=== PATIENT | male | born 1980 ===

== ENCOUNTER 2024-08-08 07:18 | Emergency (ER) | payer OTHER ==
[~2024-08-08] VITALS: Ht 175.3 cm; Wt 95.0 kg
[2024-08-08 08:58] VITALS: BP 155/93
--- OUTSIDE RECORDS SUMMARY | 2024-08-08 09:11 | XMS ---
PreManage Notification: [employer] Events No recent Security Events currently on file CRITERIA MET - [facility] - 2 Visits in 30 Days CARE PROVIDERS There are no care providers on record at this time. Edie has no Care Guidelines for this patient. Dinorah VISIT COUNT (12 MO.) 1 [facility] TOTAL 2 NOTE: Visits indicate total known visits. ED/C VISIT TRACKING (12 MO.) 08/08/2024 07:19 [facility] [place] TYPE: Emergency COMPLAINT: - ARM PAIN 07/15/2024 13:38 Mayelin Aviles [facility] [place] TYPE: Emergency DIAGNOSES: - Other fracture of upper and lower end of left fibula, initial encounter for closed fracture - Ankle Injury - L Ankle Injury INPATIENT VISIT TRACKING (12 MO.) No inpatient visits to display in this time frame [email or web address]
== END 2024-08-08 09:00 | disposition other institution, planned readmission (95) ==
LOC: ED 07:18
DX: S80.212A Abrasion, left knee, initial encounter (principal); S82.832G Other fracture of upper and lower end of left fibula, subsequent encounter for closed fracture with delayed healing; M25.512 Pain in left shoulder; X58.XXXA Exposure to other specified factors, initial encounter
CPT/HCPCS: 71045; 73030; 73560; 73610; 99284-25